=== PATIENT | male | born 1995 | race Caucasian/White ===

== ENCOUNTER 2020-08-11 22:02 | Observation (INO) | payer MEDICAID, SELFPAY ==
[2020-08-11 22:03] VITALS: BP 150/77; PULSE 89; RESP 18; TEMP 36.4; O2SAT 100; BMI 29.5
--- NOTE | 2020-08-11 22:25 | ED.DCSUM_ITS ---
History of Present Illness Chief Complaint: Substance Abuse Informant: Patient Onset: Month(s) - 5 Timing: Intermittent Quality: withdrawal sx Location: all over Current Severity: gone Maximum Severity: Severe Worsened by: not using opiates Relieved by: using heroin Associated Symptoms: shaky, anxiety, restless legs, pain all over Narrative: Patient presents wanting detox from fentanyl and heroin which she is smoking and snorting. No IV drug use. No alcohol. Occasional THC, smokes cigarettes, wants to stop using drugs. Not suicidal. Denies any recent illness. He had particularly bad withdrawal symptoms all day today since he had not used anything since yesterday afternoon, but then he was given some heroin that he snorted this evening and now he feels fine. He has not been through detox program before, has been using daily for about 5 months. Past Medical History - Allergies and Home Meds Allergies/Adverse Reactions: Allergies No Known Allergies Allergy (Verified 08/11/20 22:04) Primary Care Physician: NOT,DEFINED [NON-STAFF] - Past Medical History: None Smoking Status: Current every day smoker Review of Systems General: Reports: - - See HPI. No symptoms currently.. Denies: Chills, Fever, Sweats Eyes: Denies: Visual changes - bilaterally, Diplopia ENT: Denies: Rhinorrhea, Sore throat Cardiovascular: Denies: Chest pain, Palpitations Respiratory: Denies: Dyspnea, Cough, Dyspnea on exertion Gastrointestinal: Denies: Abdominal pain, Nausea, Vomiting, Diarrhea, Melena, Hematochezia Genitourinary: Denies: Dysuria, Hematuria, Frequency Musculoskeletal: Denies: Back pain, Swelling, Extremity Pain Skin: Denies: Rash, Wounds Neurological: Denies: Headache, Weakness, Numbness Physical Exam Vital Signs/Narrative: Vital Signs Temp Pulse Resp BP Pulse Ox 08/11/20 22:03 97.6 F L 89 18 150/77 H 100 Inital Vital Signs reviewed: Yes General: Well nourished, Well developed, No Acute Distress - Well-appearing, conversive in full sentences. Insightful. Head: Normocephalic, Atraumatic Eyes: Perrl - About 3 mm bilaterally, EOMI ENT: Moist mucous membranes, No rhinorrhea Neck: Supple, Nontender Cardiovascular: Regular rate, Regular rhythm, No murmurs Respiratory: No distress, CTA bilaterally, Chest nontender Abdomen: Soft, Nontender, Nondistended, Normal bowel sounds Back: Nontender, Normal Inspection Extremities: Nontender, No edema Skin: Normal color, No rash, No Trauma Neurological: Alert, Oriented x3, Cranial nerves II-XII grossly intact, Normal Strength, Normal Sensation, Normal Gait Psychological: Normal affect, Normal Mood Diagnostic/Tx/Re-eval Laboratory Results 08/11/20 08/11/20 08/11/20 22:30 22:35 22:35 WBC 8.4 RBC 4.96 Hgb 14.5 Hct 43.8 MCV 88.3 MCH 29.2 MCHC 33.1 RDW Std Deviation 39.8 RDW Coeff of Marian 12.3 Plt Count 367 MPV 10.3 Immature Gran % (Auto) 0.100 Neut % (Auto) 61.6 Lymph % (Auto) 27.2 [place] % (Auto) 9.5 Eos % (Auto) 1.4 Baso % (Auto) 0.2 Absolute Neuts (auto) 5.2 Absolute Lymphs (auto) 2.29 Nucleated RBC % 0 Sodium 139 Potassium 3.4 L Chloride 102 Carbon Dioxide 31.0 Anion Gap 6 BUN 15 Creatinine 0.94 Estim Creat Clear Calc 122.22 Est GFR (MDRD) Af Amer 127 Est GFR (MDRD) Non-Af 105 BUN/Creatinine Ratio 15.9 Glucose 91 Calcium 8.9 Total Bilirubin 0.30 AST 14 L ALT 25 Alkaline Phosphatase 47 Total Protein 6.9 Albumin 3.8 Globulin 3.1 Albumin/Globulin Ratio 1.2 Urine Opiates Screen NEGATIVE Urine Methadone Screen NEGATIVE Ur Barbiturates Screen NEGATIVE Ur Phencyclidine Scrn NEGATIVE Ur Amphetamines Screen NEGATIVE U Methamphetamin-MDMA NEGATIVE U Benzodiazepines Scrn NEGATIVE Urine Cocaine Screen NEGATIVE U Cannabinoids Screen POSITIVE H Ur Drug Screen Comment Ethyl Alcohol 08/11/20 22:35 WBC RBC Hgb Hct MCV MCH MCHC RDW Std Deviation RDW Coeff of Marian Plt Count MPV Immature Gran % (Auto) Neut % (Auto) Lymph % (Auto) [place] % (Auto) Eos % (Auto) Baso % (Auto) Absolute Neuts (auto) Absolute Lymphs (auto) Nucleated RBC % Sodium Potassium Chloride Carbon Dioxide Anion Gap BUN Creatinine Estim Creat Clear Calc Est GFR (MDRD) Af Amer Est GFR (MDRD) Non-Af BUN/Creatinine Ratio Glucose Calcium Total Bilirubin AST ALT Alkaline Phosphatase Total Protein Albumin Globulin Albumin/Globulin Ratio Urine Opiates Screen Urine Methadone Screen Ur Barbiturates Screen Ur Phencyclidine Scrn Ur Amphetamines Screen U Methamphetamin-MDMA U Benzodiazepines Scrn Urine Cocaine Screen U Cannabinoids Screen Ur Drug Screen Comment Ethyl Alcohol 8.0 - Medical Decision Making Patient doing well through his ED visit, labs her showing slightly low potassium and otherwise unremarkable. His opiate test is negative, meaning he is probably using mostly fentanyl which does not trigger it. Discussed with hospitalist and admitted for detox. ED Disposition - Plan for ED Patient: Disposition: Acute Care Hospital [facility] Diagnosis: Opiate dependence Referrals: NOT,DEFINED [NON-STAFF] -
[2020-08-11 22:55] LABS: Absolute Lymphocyte Count 2.29 X10^3/uL (0.83-4.51); Absolute Neutrophil Count 5.2 X10^3/uL (2.0-7.7); Basophil# 0.02 X10^3/uL; Basophil% 0.2 % (0-1); Eosinophil# 0.12 X10^3/uL; Eosinophils% 1.4 % (0-5); Hematocrit 43.8 % (40-54); Hemoglobin 14.5 g/dL (13.0-16.5); Lymphocyte # 2.29 X10^3/ul (4.0); Lymphocyte % 27.2 % (19-41); Mean Corp Hgb Conc 33.1 g/dL (32-36); Mean Corpuscular Hgb 29.2 pg (27.0-32.0); Mean Corpuscular Volume 88.3 fL (80-94); Mean Platelet Vol. 10.3 fl (6.2-12.0); Monocyte% 9.5 % (0-10); NRBC Flagged by Analyzer 0 % (0-5); Neutrophil # 5.17 X10^3/uL (2.7-7.7); Neutrophil % 61.6 % (47-70); Platelet Count 367 K/mm3 (150-450); RBC Distribution Width CV 12.3 % (11.6-14.6); RBC Distribution Width SD 39.8 fl (35.1-43.9); Red Blood Count 4.96 M/mm3 (4.6-6.2); White Blood Count 8.4 K/mm3 (4.4-11.0)
[2020-08-11 23:00] LABS: Amphetamine Urine VISTA NEGATIVE (<1000 ng/mL); Barbiturate Urine VISTA NEGATIVE (< 200 ng/mL); Benzodiazepine Urine VISTA NEGATIVE (< 200 ng/mL); Cocaine Urine VISTA NEGATIVE (< 300 ng/mL); Ecstacy Urine VISTA NEGATIVE (< 500 ng/mL); Methadone Urine VISTA NEGATIVE (< 300 ng/mL); PCP Urine VISTA NEGATIVE (< 25 ng/mL); THC Urine VISTA POSITIVE (< 50 ng/mL); Vista UDS pH Range 5
[2020-08-11 23:02] LABS: ALB/GLOB Ratio 1.2 RATIO (0.9-2.4); AST(SGOT) 14 U/L (15-37); Alanine Aminotransfer ALT/SGPT 25 U/L (16-61); Albumin, Serum 3.8 g/dL (3.2-5.0); Alkaline Phosphatase 47 U/L (45-117); Anion Gap 6 (5-15); BUN 15 mg/dL (7-18); BUN/Creat Ratio 15.9 RATIO (10-20); Calcium,Total 8.9 mg/dL (8.5-10.1); Chloride 102 mmol/L (98-107); Creatinine, Serum 0.94 mg/dL (0.70-1.30); EST Glomerular Filtration Rate 105 mL/min (>60); Est Glom Filt Rate - Afr Amer 127 mL/min (>60); Estimated Creatinine Clearance 122.22 ml/min; Globulin 3.1 g/dL (2.2-4.2); Glucose 91 mg/dL (74-106); Potassium 3.4 mmol/L (3.5-5.1); Protein, Total 6.9 g/dL (6.4-8.2); Sodium Level 139 mmol/L (136-145)
--- NOTE | 2020-08-11 23:19 | PCM.HP.STD ---
Problem List (1) Opiate withdrawal Status: Acute (2) Anxiety and depression Status: Chronic (3) Tobacco use Status: Chronic (4) Opiate dependence Status: Chronic Qualifiers: Substance use status: with unspecified opioid-induced disorder Qualified Code(s): F11.29 - Opioid dependence with unspecified opioid-induced disorder History of Present Illness Date of Admission: 08/11/20 Chief Complaint: Acute Opiate Withdrawal The patient is a 25 y/o M w/ PMHx: Anxiety and Depression, Tobacco use, Polysubstance abuse (Heroin, Fentanyl of which he both smokes and snorts, Occasional Cannabis) who presents to the [facility] ED on 08/11/20 w/ noted opiate withdrawal onset starting early today following last dose the afternoon the day prior to presentation with onset abdominal pain/cramping, generalized body aches and pains, rhinorrhea, piloerection, fatigue, restless leg, sweating, yawning prompting him to snort a small amount of heroin to lauren his withdrawal symptoms. He notes using daily for at least 5 months and has never been through detoxification treatment prior. Patient interested in attaining clean status and notes that he previously was able to do this and was clean for several months but started using again. He does note a tendency to use with certain individuals and understands that he needs to completely cut off contact with these individuals. He notes that his mother has been a significant support person in his life and he is currently living with her. Patient notes that he previously was on antidepressant and anxiety medications but he has been off for at least 6 months noting these specifically had taken himself off. Work-up in the ED included T 97.6, heart rate 89, BP 150/77, respiratory rate 18, on her percent on room air, CBC with WC 8.4, hemoglobin 14.5, platelet 367 without marked shift, CMP with potassium 3.4, hepatic profile not marked appearing, UDS with positive cannabis ethyl alcohol level 8. Past Medical History Past Medical History (Chronic Problems): Chronic Problems Opiate dependence (Chronic) Anxiety and depression (Chronic) Tobacco use (Chronic) Allergies No Known Allergies Allergy (Verified 08/11/20 22:04) Home Medications: Ambulatory Orders Medication Instructions Recorded NK 08/11/20 Surgical History: no surgical history Psychiatric History: Anxiety, Depression Lives: With Family - Patient currently lives with his mother. Smoking Status: Current every day smoker - Patient currently with 1/2 pack/day approximate tobacco usage. Tobacco Use: Cigarettes Alcohol: None Drugs: - - Fentanyl, heroin both snorted and smoked. - *Family History Maternal History Items: - - Patient denies any market maternal family history including heart disease, diabetes, cancer substance abuse. Paternal History Items: Diabetes Review of Systems Constitutional: Reports: Malaise, Fatigue. Denies: Anorexia, Chills, Fever, Weakness, Weight Change HEENT: Reports: Post Nasal Drip. Denies: Head Aches, Sinus Congestion, Sinus Drainage Cardiovascular: Denies: Chest Pain, Chest Pressure, Chest Tightness, Palpitations Respiratory: Denies: Cough, Shortness of Breath, Shortness of breath at rest, Shortness of breath upon exertion, Sputum production Gastrointestinal: Reports: Nausea. Denies: Abdominal Pain, Vomiting Genitourinary: Denies: Dysuria Musculoskeletal: Reports: Joint Pain, Muscle pain. Denies: Joint Tenderness Skin: Denies: Rash, Wounds Neurological: Denies: Numbness, Tingling, Focal weakness Psychiatric: Reports: Anxiety, Depression. Denies: Homicidal Ideations, Suicidal Ideations Hematologic/ Lymphatic: Denies: Easy Bruising, Easy Bleeding VTE Information - Inpt Only VTE Present on Admission: No VTE Mechan Device Prophylaxis: None VTE Pharm Prophylaxis ordered?: No Reason prophylaxis not ordered:: Treatment Not Indicated Subjective: Patient seated upright in the ED bed, fatigued appearing, intermittently restless, notes he had been feeling better but symptoms are starting again. Objective: Physical Examination: General: awake, alert, oriented x 3 and cooperative, seated upright in the ED bed, mildly anxious, restless. Skin: normal color, turgor, no icterus, cyanosis. HEENT: AT/NC, EOMI, PERRLA, moderately dry MM, mild rhinorrhea evident, no carotid bruits or JVD noted. Lungs: CTA bilaterally, moderate effort, mild decrease BL bases, no rales, ronchi or wheezing. Heart: Currently regular rate and rhythm; no gallop, rub audible. Abdomen: soft, mild generalized discomfort with palpation but no rebound or guarding, ND, mildly hyperactive BS, no HSM. Extremities: no cyanosis, clubbing, or edema. Neurological: patient awake, alert, oriented as noted; cognitive function intact; pupils equally reactive to light and accomodation; cranial nerves II-XII grossly normal, moving all 4 extremities, no focal deficits, strength mildly global decrease secondary to returning acute withdrawal symptoms, mildly restless, anxious. Psychiatric: affect appears mildly restless and anxious, no acute evidence of depressive feelings but does note underlying history. - Physical Exam Vitals/I&O's: Vital Signs Temp Pulse Resp BP Pulse Ox 97.6 F L 89 18 150/77 H 100 08/11/20 22:03 08/11/20 22:03 08/11/20 22:03 08/11/20 22:03 08/11/20 22:03 Oxygen Delivery Method Room Air Weight: 200 lb Body Mass Index (BMI) 29.5 Laboratory Results 08/11/20 22:30: Urine Opiates Screen NEGATIVE, Urine Methadone Screen NEGATIVE, Ur Barbiturates Screen NEGATIVE, Ur Phencyclidine Scrn NEGATIVE, Ur Amphetamines Screen NEGATIVE, U Methamphetamin-MDMA NEGATIVE, U Benzodiazepines Scrn NEGATIVE, Urine Cocaine Screen NEGATIVE, U Cannabinoids Screen POSITIVE H, Ur Drug Screen Comment 08/11/20 22:35: WBC 8.4, RBC 4.96, Hgb 14.5, Hct 43.8, MCV 88.3, MCH 29.2, MCHC 33.1, RDW Std Deviation 39.8, RDW Coeff of Marian 12.3, Plt Count 367, MPV 10.3, Immature Gran % (Auto) 0.100, Neut % (Auto) 61.6, Lymph % (Auto) 27.2, [place] % (Auto) 9.5, Eos % (Auto) 1.4, Baso % (Auto) 0.2, Absolute Neuts (auto) 5.2, Absolute Lymphs (auto) 2.29, Nucleated RBC % 0 08/11/20 22:35: Sodium 139, Potassium 3.4 L, Chloride 102, Carbon Dioxide 31.0, Anion Gap 6, BUN 15, Creatinine 0.94, Estim Creat Clear Calc 122.22, Est GFR (MDRD) Af Amer 127, Est GFR (MDRD) Non-Af 105, BUN/Creatinine Ratio 15.9, Glucose 91, Calcium 8.9, Total Bilirubin 0.30, AST 14 L, ALT 25, Alkaline Phosphatase 47, Total Protein 6.9, Albumin 3.8, Globulin 3.1, Albumin/Globulin Ratio 1.2 08/11/20 22:35: Ethyl Alcohol 8.0 Assessment/Plan All Active Problems Opiate withdrawal (Acute) The patient is a 25 y/o M w/ PMHx: Anxiety and Depression, Tobacco use, Polysubstance abuse (Heroin, Fentanyl of which he both smokes and snorts, Occasiona Cannabis) who presents to the [facility] ED on 08/11/20 w/ noted opiate withdrawal onset starting early today following last dose the afternoon the day prior to presentation with onset abdominal pain/cramping, generalized body aches and pains, rhinorrhea, piloerection, fatigue, restless leg, sweating, yawning. 1. Acute Opiate Withdrawal: Will admit to [facility], routine labs including CBC, CMP, urine for drug screen obtained in the ED and not marked appearing aside from mild hypokalemia, will initiate and continue on protocol with tapering course of Subutex, as needed tylenol, ibuprofen, bowel regimen, gabapentin, Bentyl, Vistaril, methocarbamol, clonidine, PRN nightly trazodone for insomnia, IV fluids, IV antiemetics. Once patient clinically improved and completion of taper nearing will plan consultation with case management for transition to next level of rehabilitation care. 2. Polysubstance Abuse, Chronic: Discussed with patient and he is amenable to obtain HIV, Hepatitis panel. Patient currently not candidate for hep C treatment currently as needs to be clean, sober x 6 months, documented attendance NA or AA meetings, counseling and ongoing negative drug screens but if positive given his interest in clean status it would be the first step. 3. Hypokalemia: Admission K+ 3.4, magnesium level requested, supplementation given, repeat level in AM. 4. Tobacco Abuse: Encouraged cessation, inpatient consultation per RT, NR if desired. 5. Anxiety and depression: As noted patient had taken himself off his medication several months prior, discussed benefit of potential restart and follow-up counseling with 180 to which patient seems amenable and may be an etiology for his abuse. 6. DVT prophylaxis: Low risk, encourage ambulation. Inpatient E&M: 22784 Init Hosp L3
[2020-08-11 23:24] VITALS: BP 150/77; PULSE 85; RESP 15; TEMP 36.4; O2SAT 100
[2020-08-12 00:12] VITALS: BMI 29.4
[2020-08-12 00:35] VITALS: BP 128/69; PULSE 73; RESP 18; TEMP 36.8; O2SAT 98
[2020-08-12] MEDS: Lactated Ringers 1,000 ML 125 ML IV (01:03)
[2020-08-12] MEDS: Potassium Chloride Oral Tablet 20 MEQ 40 MEQ PO (01:08)
[2020-08-12 01:51] LABS: HIV - WCH Non-Reactive (Nonreactive)
--- NOTE | 2020-08-12 05:16 | NURSING ---
pt complained that he kept hitting his hand with his IV in it and it was hurting. he wanted the iv removed. It was removed intact, did not finish iv fluids. Cow Score has increased and subutex order started.
[2020-08-12] MEDS: Buprenorphine HCl 2 MG TAB.SUBL SL ×3 (05:27→21:28)
[2020-08-12 06:43] VITALS: BP 136/62; PULSE 65; RESP 16; TEMP 36.8; O2SAT 97
[2020-08-12] MEDS: Ibuprofen 600 MG Tablet PO ×2 (07:22→17:55)
[2020-08-12] MEDS: Dicyclomine 10 MG Capsule 20 MG PO ×2 (07:22→21:28)
[2020-08-12 07:29] VITALS: BP 114/54; PULSE 99; RESP 16; TEMP 36.6; O2SAT 99
[2020-08-12] MEDS: Ondansetron 8 MG Tablet PO ×2 (08:05→17:55)
[2020-08-12] MEDS: hydrOXYzine PAM 25 MG Capsule 50 MG PO (08:07)
[2020-08-12 08:39] VITALS: O2SAT 96
[2020-08-12] MEDS: Gabapentin 300 MG Capsule PO ×2 (08:49→17:55)
--- NOTE | 2020-08-12 09:44 | PCM.PN.HOSP ---
Patient Problems: Active and Suspected Problems Opiate withdrawal (Acute) Subjective: She is complaining of chills and sweats. He denies any diarrhea or nausea at this time. He indicates has been using for approximately 5 months now and that he snorts or smokes heroin and fentanyl. Vitals/I&O's: Vital Signs Temp Pulse Resp BP Pulse Ox 97.8 F 99 16 114/54 L 96 08/12/20 07:29 08/12/20 07:29 08/12/20 07:29 08/12/20 07:29 08/12/20 08:39 Oxygen Delivery Method Room Air Weight: 93.015 kg Body Mass Index (BMI) 29.4 Intake and Output for Last 24 Hours 08/10/20 08/11/20 08/12/20 23:59 23:59 23:59 Intake Total 512.5 / 512.5 Balance 512.5 / 512.5 General: Alert, Oriented x3, Cooperative, No apparent distress, Well developed, Well nourished Oral: Moist Mucosa, No Gingival or Mucosal Lesions/ Ulcerations Lungs: Clear to auscultation, Normal air movement, No rhonchi, No wheeze, No rales Cardiovascular: Regular rate, Regular Rhythm, Normal S1, Normal S2, No murmurs, No Ectopic Activity, No rub noted, No Gallop Abdomen: Bowel Sounds Present, Soft, Non Tender, Non-Distended Extremities: No clubbing, No cyanosis, No edema, Capillary Refill Less than 3 Seconds, Peripheral Pulses Normal Neurological: Cranial nerves II-XII grossly intact, Neuro grossly intact Psych/Mental Status: Appropriate, Flat Affect Laboratory Results 08/11/20 00:00: HIV 1&2 Antibody Non-Reactive 08/11/20 22:30: Urine Opiates Screen NEGATIVE, Urine Methadone Screen NEGATIVE, Ur Barbiturates Screen NEGATIVE, Ur Phencyclidine Scrn NEGATIVE, Ur Amphetamines Screen NEGATIVE, U Methamphetamin-MDMA NEGATIVE, U Benzodiazepines Scrn NEGATIVE, Urine Cocaine Screen NEGATIVE, U Cannabinoids Screen POSITIVE H, Ur Drug Screen Comment 08/11/20 22:35: WBC 8.4, RBC 4.96, Hgb 14.5, Hct 43.8, MCV 88.3, MCH 29.2, MCHC 33.1, RDW Std Deviation 39.8, RDW Coeff of Marian 12.3, Plt Count 367, MPV 10.3, Immature Gran % (Auto) 0.100, Neut % (Auto) 61.6, Lymph % (Auto) 27.2, [place] % (Auto) 9.5, Eos % (Auto) 1.4, Baso % (Auto) 0.2, Absolute Neuts (auto) 5.2, Absolute Lymphs (auto) 2.29, Nucleated RBC % 0 08/11/20 22:35: Sodium 139, Potassium 3.4 L, Chloride 102, Carbon Dioxide 31.0, Anion Gap 6, BUN 15, Creatinine 0.94, Estim Creat Clear Calc 122.22, Est GFR (MDRD) Af Amer 127, Est GFR (MDRD) Non-Af 105, BUN/Creatinine Ratio 15.9, Glucose 91, Calcium 8.9, Total Bilirubin 0.30, AST 14 L, ALT 25, Alkaline Phosphatase 47, Total Protein 6.9, Albumin 3.8, Globulin 3.1, Albumin/Globulin Ratio 1.2 08/11/20 22:35: Ethyl Alcohol 8.0 08/11/20 22:35: Magnesium 2.0 08/11/20 22:35: Hepatitis A IgM Ab Pending, Hepatitis A Ab Total Pending, Hep Bs Antigen Pending, Hep B Core Total Ab Pending, Hep B Core IgM Ab Pending Current Medications Acetaminophen (Acetaminophen 500 Mg Tablet) 500 mg PO Q4H PRN PRN PRN Reason: Temp > 100.4 F Al Hydroxide/Mg Hydroxide (Mag Hydrox/Al Hydrox/Simeth 30 Ml Udc) 30 ml PO Q6H PRN PRN PRN Reason: dyspesia Albuterol Sulfate (Albuterol 2.5 Mg/3 Ml Vial.Neb.) 2.5 mg INHALATION Q2H PRN PRN PRN Reason: Dyspnea, wheezing Bisacodyl (Bisacodyl 10 Mg Suppository) 10 mg RC DAILY PRN PRN Reason: Constipation Buprenorphine HCl (Buprenorphine Hcl 2 Mg Tab.Subl) 4 mg SL Q8H CHITRA; Taper Stop: 08/15/20 05:14 Last Admin: 08/12/20 05:27 Dose: 4 mg Documented by: Clonidine (Clonidine Hcl 0.1 Mg Tablet) 0.1 mg PO Q8H PRN PRN PRN Reason: RESTLESSNESS Dicyclomine HCl (Dicyclomine 10 Mg Capsule) 20 mg PO Q6H PRN PRN PRN Reason: Abdominal Discomfort Last Admin: 08/12/20 07:22 Dose: 20 mg Documented by: Gabapentin (Gabapentin 300 Mg Capsule) 300 mg PO Q8H PRN PRN PRN Reason: moderate to severe anxiety Last Admin: 08/12/20 08:49 Dose: 300 mg Documented by: Hydralazine HCl (Hydralazine 20 Mg/Ml Vial) 10 mg IV Q4H PRN PRN PRN Reason: SBP > 160 Hydroxyzine Pamoate (Hydroxyzine Yeni 25 Mg Capsule) 50 mg PO Q6H PRN PRN PRN Reason: mild anxiety Last Admin: 08/12/20 08:07 Dose: 50 mg Documented by: Ibuprofen (Ibuprofen 600 Mg Tablet) 600 mg PO Q8H PRN PRN PRN Reason: PAIN 1-10 Last Admin: 08/12/20 07:22 Dose: 600 mg Documented by: Loperamide HCl (Loperamide 2 Mg Capsule) 2 mg PO Q4H PRN PRN PRN Reason: LOOSE STOOLS Methocarbamol (Methocarbamol 750 Mg Tablet) 1,500 mg PO Q6H PRN PRN PRN Reason: MUSCLE SPASM Nicotine (Nicotine 14 Mg Patch) 14 mg TD DAILY CHITRA Last Admin: 08/12/20 07:23 Dose: 14 mg Documented by: Ondansetron HCl (Ondansetron 8 Mg Tablet) 8 mg PO Q8H PRN PRN PRN Reason: NAUSEA Last Admin: 08/12/20 08:05 Dose: 8 mg Documented by: Senna (Senna Tablet) 2 tablet PO QHS PRN PRN PRN Reason: Constipation Sodium Chloride (0.9% Saline Lock 10 Ml Syringe) 10 - 40 ml IV UD PRN PRN Reason: SALINE FLUSH Trazodone HCl (Trazodone 100 Mg Tablet) 100 mg PO QHS PRN PRN PRN Reason: INSOMNIA STROKE Vital Signs/Narrative: Vital Signs Temp Pulse Resp BP Pulse Ox 08/12/20 08:39 96 08/12/20 07:29 97.8 F 99 16 114/54 L 99 08/12/20 06:43 98.3 F 65 16 136/62 H 97 Medical Necessity - Tobacco Use Smoking Status: Current every day smoker Tobacco Use: Cigarettes Assessment/Plan All Active Problems Opiate withdrawal (Acute) Acute opiate withdrawal -Suboxone taper -Continue supportive medications -HIV is nonreactive -Hepatitis panel pending -Add-on hep C antibody -180 consultation Hypokalemia -Replaced with p.o. supplementation -BMP in a.m. Polysubstance abuse-chronic -Tox screen is positive for THC only on admission -See above Anxiety/depression -Patient had taken himself off medications a few months prior to presentation -Consider reinitiating antidepressant -Counseling will be available at 180 upon discharge Tobacco abuse -Recommend cessation -Nicotine replacement DVT prophylaxis -Early ambulation -Low risk CODE STATUS -Full code Inpatient E&M: 97052 Subs Hosp L2
[2020-08-12] MEDS: Methocarbamol 750 MG Tablet 1500 MG PO ×2 (13:27→21:30)
[2020-08-12 13:28] VITALS: BP 114/67; PULSE 82; RESP 16; TEMP 36.9; O2SAT 100
[2020-08-12] MEDS: traZODone 100 MG Tablet PO (21:28)
[2020-08-12 21:39] VITALS: BP 112/69; PULSE 69; RESP 16; TEMP 37.2; O2SAT 100
[2020-08-13] MEDS: Buprenorphine HCl 2 MG TAB.SUBL SL ×2 (05:02→12:54)
[2020-08-13 05:20] VITALS: BP 113/82; PULSE 69; RESP 16; TEMP 36.4; O2SAT 100
[2020-08-13] MEDS: Methocarbamol 750 MG Tablet 1500 MG PO (07:18)
[2020-08-13] MEDS: Gabapentin 300 MG Capsule PO (07:18)
[2020-08-13 07:21] VITALS: O2SAT 98
[2020-08-13 07:36] VITALS: BP 125/58; PULSE 65; RESP 16; TEMP 36.4; O2SAT 98
--- NOTE | 2020-08-13 11:15 | PCM.PN.HOSP ---
Patient Problems: Active and Suspected Problems Opiate withdrawal (Acute) Subjective: Patient states he is still not feeling great but better than he was yesterday. Denies any current needs. Acknowledges plan for future discharge into his mom's care with transportation to [facility] in [place]. Vitals/I&O's: Vital Signs Temp Pulse Resp BP Pulse Ox 97.6 F L 65 16 125/58 H 98 08/13/20 07:36 08/13/20 07:36 08/13/20 07:36 08/13/20 07:36 08/13/20 07:36 Oxygen Delivery Method Room Air Weight: 93.015 kg Body Mass Index (BMI) 29.4 Intake and Output for Last 24 Hours 08/11/20 08/12/20 08/13/20 23:59 23:59 23:59 Intake Total 1562.5 / 1562.5 Balance 1562.5 / 1562.5 General: Alert, Oriented x3, Cooperative, No apparent distress, Well developed, Well nourished, - - Young white male, lying in bed, appears nontoxic but still looks mildly uncomfortable HEENT: Atraumatic, Normocephalic Oral: Moist Mucosa Neck: Supple, Trachea Midline Lungs: Clear to auscultation, Normal air movement, No rhonchi, No wheeze, No rales Cardiovascular: Regular rate, Regular Rhythm, Normal S1, Normal S2, No murmurs, No Ectopic Activity, No rub noted, No Gallop Abdomen: Bowel Sounds Present, Soft, Non Tender, Non-Distended Extremities: No clubbing, No cyanosis, No edema, Capillary Refill Less than 3 Seconds Neurological: Cranial nerves II-XII grossly intact, Neuro grossly intact Psych/Mental Status: Appropriate, Flat Affect Current Medications Acetaminophen (Acetaminophen 500 Mg Tablet) 500 mg PO Q4H PRN PRN PRN Reason: Temp > 100.4 F Al Hydroxide/Mg Hydroxide (Mag Hydrox/Al Hydrox/Simeth 30 Ml Udc) 30 ml PO Q6H PRN PRN PRN Reason: dyspesia Albuterol Sulfate (Albuterol 2.5 Mg/3 Ml Vial.Neb.) 2.5 mg INHALATION Q2H PRN PRN PRN Reason: Dyspnea, wheezing Bisacodyl (Bisacodyl 10 Mg Suppository) 10 mg RC DAILY PRN PRN Reason: Constipation Buprenorphine HCl (Buprenorphine Hcl 2 Mg Tab.Subl) 2 mg SL Q8H CHITRA; Taper Stop: 08/15/20 05:14 Last Admin: 08/13/20 05:02 Dose: 2 mg Documented by: Clonidine (Clonidine Hcl 0.1 Mg Tablet) 0.1 mg PO Q8H PRN PRN PRN Reason: RESTLESSNESS Dicyclomine HCl (Dicyclomine 10 Mg Capsule) 20 mg PO Q6H PRN PRN PRN Reason: Abdominal Discomfort Last Admin: 08/12/20 21:28 Dose: 20 mg Documented by: Gabapentin (Gabapentin 300 Mg Capsule) 300 mg PO Q8H PRN PRN PRN Reason: moderate to severe anxiety Last Admin: 08/13/20 07:18 Dose: 300 mg Documented by: Hydralazine HCl (Hydralazine 20 Mg/Ml Vial) 10 mg IV Q4H PRN PRN PRN Reason: SBP > 160 Hydroxyzine Pamoate (Hydroxyzine Yeni 25 Mg Capsule) 50 mg PO Q6H PRN PRN PRN Reason: mild anxiety Last Admin: 08/12/20 08:07 Dose: 50 mg Documented by: Ibuprofen (Ibuprofen 600 Mg Tablet) 600 mg PO Q8H PRN PRN PRN Reason: PAIN 1-10 Last Admin: 08/12/20 17:55 Dose: 600 mg Documented by: Loperamide HCl (Loperamide 2 Mg Capsule) 2 mg PO Q4H PRN PRN PRN Reason: LOOSE STOOLS Methocarbamol (Methocarbamol 750 Mg Tablet) 1,500 mg PO Q6H PRN PRN PRN Reason: MUSCLE SPASM Last Admin: 08/13/20 07:18 Dose: 1,500 mg Documented by: Nicotine (Nicotine 14 Mg Patch) 14 mg TD DAILY CHITRA Last Admin: 08/13/20 06:44 Dose: 14 mg Documented by: Ondansetron HCl (Ondansetron 8 Mg Tablet) 8 mg PO Q8H PRN PRN PRN Reason: NAUSEA Last Admin: 08/12/20 17:55 Dose: 8 mg Documented by: Senna (Senna Tablet) 2 tablet PO QHS PRN PRN PRN Reason: Constipation Sodium Chloride (0.9% Saline Lock 10 Ml Syringe) 10 - 40 ml IV UD PRN PRN Reason: SALINE FLUSH Trazodone HCl (Trazodone 100 Mg Tablet) 100 mg PO QHS PRN PRN PRN Reason: INSOMNIA Last Admin: 08/12/20 21:28 Dose: 100 mg Documented by: STROKE Vital Signs/Narrative: Vital Signs Temp Pulse Resp BP Pulse Ox 08/13/20 07:36 97.6 F L 65 16 125/58 H 98 08/13/20 07:21 98 Medical Necessity - Tobacco Use Smoking Status: Current every day smoker Tobacco Use: Cigarettes Assessment/Plan All Active Problems Opiate withdrawal (Acute) Acute opiate withdrawal -Suboxone taper--> currently on 2 mg every 8 hours -Continue supportive medications -HIV is nonreactive -Hepatitis panel remains pending -180 has evaluated the patient and the plan is for discharge on 08/15/2020 into his mother's care with transportation to [facility] in [place] Hypokalemia -Replaced with p.o. supplementation -BMP pending Polysubstance abuse-chronic -Tox screen is positive for THC only on admission -See above Anxiety/depression -Patient had taken himself off medications a few months prior to presentation -Consider reinitiating antidepressant -Counseling will be available at 180 upon discharge Tobacco abuse -Recommend cessation -Nicotine replacement DVT prophylaxis -Early ambulation -Low risk CODE STATUS -Full code Disposition -Plan is for discharge on 08/15/2020 and his mother's care for transportation to [facility] in [place] Inpatient E&M: 88996 Subs Hosp L2
[2020-08-13 11:49] LABS: Anion Gap 5 (5-15); BUN 10 mg/dL (7-18); BUN/Creat Ratio 9.7 RATIO (10-20); Calcium,Total 9.2 mg/dL (8.5-10.1); Chloride 106 mmol/L (98-107); Creatinine, Serum 1.03 mg/dL (0.70-1.30); EST Glomerular Filtration Rate 95 mL/min (>60); Est Glom Filt Rate - Afr Amer 115 mL/min (>60); Estimated Creatinine Clearance 115.17 ml/min; Glucose 140 mg/dL (74-106); Sodium Level 140 mmol/L (136-145)
[2020-08-13] MEDS: Dicyclomine 10 MG Capsule 20 MG PO (12:54)
[2020-08-13] MEDS: Acetaminophen 500 MG Tablet PO (12:54)
[2020-08-13 13:23] VITALS: BP 125/69; PULSE 89; RESP 16; TEMP 37.2; O2SAT 96
--- NOTE | 2020-08-13 17:10 | NURSING ---
pt leaving [facility], papers signed. dr harley notified
--- NOTE | 2020-08-13 17:35 | PCM.DC.SUM ---
Discharge Date and Diagnosis - Problem List Patient Problems: Active and Suspected Problems Opiate withdrawal (Acute) Date of Admission: 08/11/20 Date of Discharge: 08/13/20 - Primary Discharge Diagnosis Acute Problems: Active Problems Opiate withdrawal (Acute) - Secondary Discharge Diagnosis Chronic Problems: Chronic Problems Opiate dependence (Chronic) Anxiety and depression (Chronic) Tobacco use (Chronic) Hospital Course and Treatment [facility] Addiction Medicine Operations: None Procedures: None Summary of Care Provided: Mr Waters is a 25 y/o M w/ PMHx: Anxiety and Depression, Tobacco use, Polysubstance abuse (Heroin, Fentanyl of which he both smokes and snorts, Occasional Cannabis) who presented to the [facility] ED on 08/11/20 w/ noted opiate withdrawal onset starting early today. His last use was on the afternoon the day prior to presentation. He presented with abdominal pain/cramping, generalized body aches and pains, rhinorrhea, piloerection, fatigue, restless leg, sweating, yawning prompting him to snort a small amount of heroin to lauren his withdrawal symptoms. He notes using daily for at least 5 months and has never been through detoxification treatment prior. He interested in recovery and notes that he previously was able to do this and was clean for several months but started using again. He does note a tendency to use with certain individuals and understands that he needs to completely cut off contact with these individuals. He notes that his mother has been a significant support person in his life and he is currently living with her. Patient notes that he previously was on antidepressant and anxiety medications but he has been off for at least 6 months noting these specifically had taken himself off. Work-up in the ED included T 97.6, heart rate 89, BP 150/77, respiratory rate 18, on her percent on room air, CBC with WC 8.4, hemoglobin 14.5, platelet 367 without marked shift, CMP with potassium 3.4, hepatic profile not marked appearing, UDS with positive cannabis ethyl alcohol level 8. He was admitted to the [facility] and started on a Subutex taper and supportive medications. He was seen by 180 and a plan had been established that he would be discharged early on Friday to his mother's care and she would take him to [facility] in [place] for continued rehabilitation. He HIV and Hepatitis status were both negative at this time. In the late afternoon of 08/14/2019 Mr. Waters decided to leave [place]. Patient Problems: Active and Suspected Problems Opiate withdrawal (Acute) - Physical Exam Vitals/I&O's: Vital Signs Temp Pulse Resp BP Pulse Ox 98.9 F 89 16 125/69 H 96 08/13/20 13:23 08/13/20 13:23 08/13/20 13:23 08/13/20 13:23 08/13/20 13:23 Oxygen Delivery Method Room Air Weight: 93.015 kg Body Mass Index (BMI) 29.4 Intake and Output for Last 24 Hours 08/11/20 08/12/20 08/13/20 23:59 23:59 23:59 Intake Total 1562.5 / 1562.5 450 / 450 Balance 1562.5 / 1562.5 450 / 450 Laboratory Results 08/13/20 11:25: Sodium 140, Potassium 4.0, Chloride 106, Carbon Dioxide 29.0, Anion Gap 5, BUN 10, Creatinine 1.03, Estim Creat Clear Calc 115.17, Est GFR (MDRD) Af Amer 115, Est GFR (MDRD) Non-Af 95, BUN/Creatinine Ratio 9.7 L, Glucose 140 H, Calcium 9.2 Current Medications Acetaminophen (Acetaminophen 500 Mg Tablet) 500 mg PO Q4H PRN PRN PRN Reason: Temp > 100.4 F Last Admin: 08/13/20 12:54 Dose: 500 mg Documented by: Al Hydroxide/Mg Hydroxide (Mag Hydrox/Al Hydrox/Simeth 30 Ml Udc) 30 ml PO Q6H PRN PRN PRN Reason: dyspesia Albuterol Sulfate (Albuterol 2.5 Mg/3 Ml Vial.Neb.) 2.5 mg INHALATION Q2H PRN PRN PRN Reason: Dyspnea, wheezing Bisacodyl (Bisacodyl 10 Mg Suppository) 10 mg RC DAILY PRN PRN Reason: Constipation Buprenorphine HCl (Buprenorphine Hcl 2 Mg Tab.Subl) 2 mg SL Q8H CHITRA; Taper Stop: 08/15/20 05:14 Last Admin: 08/13/20 12:54 Dose: 2 mg Documented by: Clonidine (Clonidine Hcl 0.1 Mg Tablet) 0.1 mg PO Q8H PRN PRN PRN Reason: RESTLESSNESS Dicyclomine HCl (Dicyclomine 10 Mg Capsule) 20 mg PO Q6H PRN PRN PRN Reason: Abdominal Discomfort Last Admin: 08/13/20 12:54 Dose: 20 mg Documented by: Gabapentin (Gabapentin 300 Mg Capsule) 300 mg PO Q8H PRN PRN PRN Reason: moderate to severe anxiety Last Admin: 08/13/20 07:18 Dose: 300 mg Documented by: Hydralazine HCl (Hydralazine 20 Mg/Ml Vial) 10 mg IV Q4H PRN PRN PRN Reason: SBP > 160 Hydroxyzine Pamoate (Hydroxyzine Yeni 25 Mg Capsule) 50 mg PO Q6H PRN PRN PRN Reason: mild anxiety Last Admin: 08/12/20 08:07 Dose: 50 mg Documented by: Ibuprofen (Ibuprofen 600 Mg Tablet) 600 mg PO Q8H PRN PRN PRN Reason: PAIN 1-10 Last Admin: 08/12/20 17:55 Dose: 600 mg Documented by: Loperamide HCl (Loperamide 2 Mg Capsule) 2 mg PO Q4H PRN PRN PRN Reason: LOOSE STOOLS Methocarbamol (Methocarbamol 750 Mg Tablet) 1,500 mg PO Q6H PRN PRN PRN Reason: MUSCLE SPASM Last Admin: 08/13/20 07:18 Dose: 1,500 mg Documented by: Nicotine (Nicotine 14 Mg Patch) 14 mg TD DAILY CHITRA Last Admin: 08/13/20 06:44 Dose: 14 mg Documented by: Ondansetron HCl (Ondansetron 8 Mg Tablet) 8 mg PO Q8H PRN PRN PRN Reason: NAUSEA Last Admin: 08/12/20 17:55 Dose: 8 mg Documented by: Senna (Senna Tablet) 2 tablet PO QHS PRN PRN PRN Reason: Constipation Sodium Chloride (0.9% Saline Lock 10 Ml Syringe) 10 - 40 ml IV UD PRN PRN Reason: SALINE FLUSH Trazodone HCl (Trazodone 100 Mg Tablet) 100 mg PO QHS PRN PRN PRN Reason: INSOMNIA Last Admin: 08/12/20 21:28 Dose: 100 mg Documented by: Home Medications: Medications to take at Discharge [facility] 08/11/20 Primary Care Physician: NOT,DEFINED [NON-STAFF] - Medical Necessity - Tobacco Use Smoking Status: Current every day smoker Tobacco Use: Cigarettes Meaningful Use Info Meaningful Use Diagnoses (Choose all that apply): None applicable
[2020-08-14 08:07] LABS: HEPATITIS B SURFACE AG Negative (Negative); Hepatitis A AB, Total Positive (Negative); Hepatitis A IgM Antibody Negative (Negative); Hepatitis B Core AB IgM Negative (Negative); Hepatitis B Core Ab Total Negative (Negative); Hepatitis C Ab <0.1 s/co ratio (0.0-0.9)
[2020-08-14 08:48] LABS: Hepatitis C Antibody Non-Reactive (Nonreactive)
[2020-08-14 12:35] LABS: Hep B Surface Antibodies Non Reactive (.)
== END 2020-08-13 18:07 | disposition left against medical advice (07) ==
LOC: ED 22:54 → MS3 08-12 00:50
PROVIDERS: Admitting Provider Family Medicine; Emergency Provider Emergency Medicine; Visit Provider Internal Medicine
DX: F11.23 Opioid dependence with withdrawal (principal); F17.210 Nicotine dependence, cigarettes, uncomplicated; E87.6 Hypokalemia
CPT/HCPCS: 36415; 80048; 80053; 80307; 82077; 83735; 85025; 86703; 86704; 86705; 86706; 86708; 86709; 86803; 87340; 99283; 99406; H0012; J7120